=== PATIENT | female | born 1980 | race Caucasian/White ===

== ENCOUNTER → 2020-06-27 02:45 | Outpatient (CLI) | payer OTHER, SELFPAY ==
[2020-06-27 19:42] LABS: SARS-CoV-2 RNA PCR Negative
== END ==
PROVIDERS: PCP Physician Assistant; Visit Provider Internal Medicine Gastroenterology
DX: Z01.812 Encounter for preprocedural laboratory examination (principal); Z20.822 Contact with and (suspected) exposure to COVID-19
CPT/HCPCS: C9803; U0003; U0005

== ENCOUNTER 2020-06-30 02:11 | Day surgery (SDC) | payer OTHER, SELFPAY ==
[2020-06-24 11:45] VITALS: BMI 22.0
[2020-06-30] MEDS: LACTATED RINGERS 1,000 ML 150 ML IV CONT (12:34)
[2020-06-30 12:39] VITALS: BP 120/75; PULSE 83; RESP 14; TEMP 36.4; O2SAT 99
--- NOTE | 2020-06-30 12:53 | PM.HPGS ---
History of Present Illness History of Present Illness Consent: Risks, benefits, and alternatives have been discussed and questions answered. Patient agrees to proceed with procedure. Chief complaint: Neoplasm Screening Narrative: Lynette Schwartz is a 40 year old female had colonoscopy 10 years ago (normal) because mother had polyp in her 30's and grandparent had colon cancer. Review of Systems Constitutional: Constitutional: Denies headache(s) and Denies weakness Eyes: Eyes: Denies blurry vision ENT: Reports Normal hearing present, Denies headache(s) and Denies neck pain Cardiovascular: Cardiovascular: Denies chest pain and Denies dyspnea Respiratory: Respiratory: Denies dyspnea Gastrointestinal: Gastrointestinal: Reports no additional gastrointestinal complaints Genitourinary: Genitourinary: Denies dysuria Musculoskeletal: Musculoskeletal: Denies neck pain Integumentary/Breasts: Skin/Breast: Denies dry skin Neurologic: Reports Normal hearing present, Denies headache(s) and Denies weakness Psychiatric: Psychiatric: Denies anxiety Endocrine: Endocrine: Denies change in body appearance Hematologic/Lymphatic: Hematologic/Lymphatic: Denies easy bleeding Allergic/Immunologic: Allergic/Immunologic: Denies urticaria PMFSH Past Medical History Medical History IBS (irritable bowel syndrome) Surgical History Surgical History Gallbladder disorder Gallbladder removed Family History Family History Father Skin cancer Hypertension Mother Asthma Thyroid disorder Sibling Asthma Hypertension Thyroid disorder Grandparent Carcinoma of colon Grandparent Depression Heart disease Social History Social History Smoking status: Never smoker Alcohol intake: current Drinks per week: 1 Alcohol use details: wine Substance use: never Substance use type: does not use Living arrangements: with family Gender identity (if verbalized by the patient): Female Meds Home Medications and Allergies Home Medications Medication Instructions Recorded Confirmed Type sodium,potassium,mag sulfates 17.5 See Rx Instructions PO .COMPLEX 06/24/20 Rx gram-3.13 gram-1.6 gram oral soln #354 ml Allergies Allergy/AdvReac Type Severity Reaction Status Date / Time No Known Allergies Allergy Mild Verified 06/24/20 11:41 Vital Signs Vital Signs - 24 hr 06/30/20 12:39 Temperature 97.6 F Pulse Rate 83 Respiratory Rate 14 Blood Pressure 120/75 Pulse Oximetry 99 Exam Const: General: comfortable and no acute distress HENMT: General nose exam: Normal nares present Eyes: General: appearance normal, both eyes and all related structures Neck: Neck: no JVD Resp: Auscultation: clear to auscultation bilaterally Cardio: Rate: regular rate Rhythm: regular rhythm GI: Inspection: non-distended GI Palp: Yes Soft to palpation Skin: General skin exam: normal color Neuro: General: gait normal Speech: normal speech Extrem: General: normal to inspection Psych: Mental Status: mental status grossly normal Assessment and Plan Assessment and plan (1) Encounter for colonoscopy in patient with family history of colon polyps: Code(s): Z12.11 - Encounter for screening for malignant neoplasm of colon; Z83.71 - Family history of colonic polyps Status: Acute Assessment and Plan: proceed with colonoscopy
--- NOTE | 2020-06-30 13:04 | WPDANESEPPF ---
Anes - Initial Pre Proc Eval Procedure: Operation Date: 06/30/20 13:45 Proposed Procedures p Screening Colonoscopy - Cornelio Casey MD Date/Time: 06/30/20 13:04 Surgeon: Cornelio Casey MD Pre Op Diagnosis: Neoplasm Screening Patient Data Age: 40 Gender: F Height: 5 ft 5 in Weight: 59.1 kg Last Vital Signs Temp 97.6 F 06/30/20 12:39 Pulse 83 06/30/20 12:39 Resp 14 06/30/20 12:39 BP 120/75 06/30/20 12:39 Pulse Ox 99 06/30/20 12:39 Allergies Allergy/AdvReac Type Severity Reaction Status Date / Time No Known Allergies Allergy Mild Verified 06/24/20 11:41 Home Medications Medication Instructions Recorded Confirmed Type sodium,potassium,mag sulfates 17.5 See Rx Instructions PO .COMPLEX 06/24/20 Rx gram-3.13 gram-1.6 gram oral soln #354 ml Patient hx anesthesia problems: none Family hx anesthesia problems: none PMFSH Past Medical History Medical History IBS (irritable bowel syndrome) Surgical History Surgical History Gallbladder disorder Gallbladder removed Family History Family History Father Skin cancer Hypertension Mother Asthma Thyroid disorder Sibling Asthma Hypertension Thyroid disorder Grandparent Carcinoma of colon Grandparent Depression Heart disease Social History Social History Smoking status: Never smoker Alcohol intake: current Drinks per week: 1 Alcohol use details: wine Substance use: never Substance use type: does not use Living arrangements: with family Gender identity (if verbalized by the patient): Female Anes - Eval Final PreProcedure Day of Procedure 06/30/20 13:04 Patient weight: normal Heart: regular rate and rhythm Lungs: clear to auscultation Airway: Mallampati scale class 1 Neurological: alert and oriented Last oral intake: >/= 8 hours ASA classification: I Emergent: no Anesthetic plan: proceed Anesthesia type and monitoring: general GIVS and standard monitoring Informed Consent: The patient's anesthetic plan and its attendant risks and benefits were discussed with the patient/family/POA. Questions were solicited and answers provided to the satisfaction of the patient/family/POA.
[2020-06-30 13:25] VITALS: BP 95/57; PULSE 66; RESP 21; O2SAT 100
[2020-06-30 13:35] VITALS: BP 107/66; PULSE 83; RESP 26; O2SAT 100
[2020-06-30 13:41] VITALS: BP 112/73; PULSE 68; RESP 14; O2SAT 99
== END 2020-06-30 13:52 | disposition home or self-care (01) ==
PROVIDERS: PCP Physician Assistant; Visit Provider Internal Medicine Gastroenterology
PROC: 0DJD8ZZ Inspection of Lower Intestinal Tract, Via Natural or Artificial Opening Endoscopic (ICD-10-PCS; CPT 45378; principal; 2020-06-30 13:45)
DX: Z12.11 Encounter for screening for malignant neoplasm of colon (principal); Z83.71 Family history of colonic polyps; K58.9 Irritable bowel syndrome, unspecified
CPT/HCPCS: 45378; C9803; J2704; J7120; U0003; U0005

== ENCOUNTER → 2020-07-15 10:21 | Outpatient (CLI) | payer OTHER, SELFPAY ==
--- NOTE | ~2020-07-15 | MM_ITS ---
EXAMINATION: MM screening [facility] w [facility] HISTORY: Screening TECHNIQUE: Craniocaudal and mediolateral oblique 3-D tomosynthesis images were obtained and synthetic 2-D images were generated. CAD analysis was submitted and interpreted. COMPARISON: No prior mammogram is available for comparison at this institution. BREAST PARENCHYMAL COMPOSITION: The breasts are heterogenously dense, which may obscure small masses. FINDINGS: There is no evidence of suspicious mass, calcification, or architectural distortion to sugg est malignancy in either breast. There has been no suspicious interval change. IMPRESSION: 1. No mammographic evidence of malignancy. 2. Recommend routine screening mammography in one year. BI-RADS Category 1: Negative Reviewed, dictated and finalized at location A.
--- NOTE | ~2020-07-15 | US_ITS ---
EXAMINATION: US pelvic complete w TV EXAM DATE: 07/15/2020 11:42 INDICATION: Right lower quadrant pain with abd tenderness. TECHNIQUE: Pelvic transabdominal and transvaginal sonogram was performed. There are multiple graysca le and Doppler images available for interpretation. There is no prior study for comparison. FINDINGS: Uterus measures 9.3 x 4.1 x 6.4 cm, and is morphologically normal. Endometrial stripe mireille sures 4 mm, within normal limits. There is no free pelvic fluid. Right adnexa: The ovary measures 2.4 x 2.1 x 1.6 cm and is morphologically normal. Ovarian vascular f low confirmed. Left adnexa: The ovary measures 2.7 x 1.2 x 2.4 cm and is morphologically normal. Ovarian vascular fl ow confirmed. IMPRESSION: 1. Unremarkable pelvic ultrasound exam. Reviewed, dictated and finalized at location A.
== END ==
PROVIDERS: PCP Physician Assistant; Visit Provider Obstetrics & Gynecology
DX: Z12.31 Encounter for screening mammogram for malignant neoplasm of breast (principal); R10.31 Right lower quadrant pain
CPT/HCPCS: 76830; 76856; 77063; 77067

== ENCOUNTER 2022-02-24 08:04 | Emergency (ER) | payer OTHER, SELFPAY ==
--- NOTE | 2022-02-24 08:11 | ED.URI ---
HPI - URI/Sore Throat General Chief Complaint: Upper Respiratory Infection Stated Complaint: SORE THROAT/COUGH/CHEST TIGHTNESS Time Seen by Provider: 02/24/22 08:16 Source: patient and RN notes reviewed Mode of arrival: ambulatory Limitations: no limitations History of Present Illness HPI Narrative: 42-year-old female presents with concern for 5 history of cough, chest tightness, thick phlegm. She reports she has been using Sudafed without relief. She denies nasal congestion, rhinorrhea, fever, chills, sweats. Reports aches. MD elicited complaint: cough Related Data Allergies Allergy/AdvReac Type Severity Reaction Status Date / Time No Known Allergies Allergy Mild Verified 02/24/22 08:26 Review of Systems Review of Systems: CONSTITUTIONAL: Report malaise. Denies chills, sweats, or fever. EYES: Denies visual changes, redness, or discharge. ENT: Denies rhinorrhea, congestion, sinus pain, otalgia. Reports sore throat. CARDIOVASCULAR: Denies chest pain, palpitations, or edema. RESPIRATORY: Reports cough, chest congestion. Denies dyspnea. GASTROINTESTINAL: Denies abdominal pain, nausea, vomiting, diarrhea SKIN: Denies rash or itching. MUSCULOSKELETAL: Reports myalgia. NEUROLOGIC: Denies headache. All systems reviewed & are unremarkable except as noted in HPI and below PMFSH Past Medical History Medical History IBS (irritable bowel syndrome) Surgical History Surgical History Gallbladder disorder Gallbladder removed Family History Family History Father Skin cancer Hypertension Mother Asthma Thyroid disorder Sibling Asthma Hypertension Thyroid disorder Grandparent Carcinoma of colon Grandparent Depression Heart disease Social History Social History Smoking status: Never smoker Alcohol intake: current Drinks per week: 1 Alcohol use details: wine Substance use: never Substance use type: does not use Gender identity (if verbalized by the patient): Female Comments At time of signature, agree with nursing past medical, surgical, social and family history. There is no relevant family history pertinent to the presenting complaint Exam Narrative: GENERAL: Well-appearing, well-nourished, and in no acute distress. HEAD: Normocephalic EYES: PERRLA, conjunctivae clear ENT: Nares clear, clear discharge. Mucous membranes moist. TM pearly nicole with dull light reflex bilaterally; no tragal tenderness. Oropharynx not erythematous without lesions. Tonsils not enlarged and without exudate, no drooling, no hoarseness, no trismus, uvula midline. NECK: Supple. No lymphadenopathy CHEST: Clear to auscultation, breath sounds equal. No wheezing, rhonchi, rales, or stridor. No respiratory distress, speaks in full sentences. HEART: Regular rate and rhythm. No murmur heard. SKIN: Warm, dry, no rash. NEURO: Alert and oriented x3. PSYCH: Normal mood and affect Course Course Emergency Course: Patient is aware of diagnosis, understands and agrees to treatment plan. Anticipatory guidance given. Patient agrees to follow-up as directed and is aware of reasons to seek care at the emergency department. Portions of this record may have been created with voice recognition software Level of Care: Express Care Visit Vital Signs Vital signs: Reviewed. MDM - URI/Sore Throat MDM Narrative Medical decision making narrative: Differential diagnosis considered: Jimenez virus, strep pharyngitis, allergic rhinitis, upper respiratory tract infection, sinusitis, rhinosinusitis, nasopharyngitis. viral pharyngitis, otitis media, otitis externa, pneumonia, bronchitis, viral cough syndrome, viral syndrome, and influenza. Exam findings show no acute concerns or changes; patient is non-toxic appearing and
[2022-02-24 08:15] VITALS: BP 134/74; PULSE 95; RESP 16; TEMP 37.1; O2SAT 100
== END 2022-02-24 08:38 | disposition home or self-care (01) ==
PROVIDERS: Emergency Provider Nurse Practitioner; PCP Physician Assistant
DX: J40 Bronchitis, not specified as acute or chronic (principal)
CPT/HCPCS: 99213; G0463

== ENCOUNTER → 2022-10-20 11:13 | Outpatient (CLI) | payer OTHER, SELFPAY ==
--- NOTE | ~2022-10-20 | MM_ITS ---
EXAMINATION: MM screening [facility] BI w [facility] HISTORY: Screening mammogram TECHNIQUE: Craniocaudal and mediolateral oblique 3-D tomosynthesis images were obtained and synthetic 2-D images were generated. CAD analysis was submitted and interpreted. COMPARISON: 07/15/2020 bilateral screening mammogram BREAST PARENCHYMAL COMPOSITION: The breasts are heterogeneously dense, which may obscure small masses . FINDINGS: There is no evidence of suspicious mass, calcification, or architectural distortion to sugg est malignancy in either breast. There has been no suspicious interval change. IMPRESSION: 1. No mammographic evidence of malignancy. 2. Recommend routine screening mammography in one year. BI-RADS Category 1: Negative Reviewed, dictated and finalized at location A.
== END ==
PROVIDERS: PCP Physician Assistant; Visit Provider Physician Assistant
DX: Z12.31 Encounter for screening mammogram for malignant neoplasm of breast (principal)
CPT/HCPCS: 77063; 77067

== ENCOUNTER 2023-03-09 08:19 | Emergency (ER) | payer OTHER, SELFPAY ==
--- NOTE | 2023-03-09 08:36 | ED.URI ---
HPI - URI/Sore Throat General Chief Complaint: Upper Respiratory Infection Stated Complaint: throat History of Present Illness HPI Narrative: 43-year-old female presented for complaint of sore throat, nasal congestion, and cough over the past few days. States that her pain is becoming severe, rating 9/10. Taking ibuprofen for symptoms. Endorses family members with similar symptoms. Denies shortness of breath, wheezing, nausea, vomiting, fevers or chills. Related Data Allergies Allergy/AdvReac Type Severity Reaction Status Date / Time No Known Allergies Allergy Mild Verified 07/06/22 10:09 Review of Systems Review of Systems: CONSTITUTIONAL: Denies body aches, fever, chills, or sweats. EYES: Denies visual changes, redness, or discharge. ENT: Reports rhinorrhea, congestion, sore throat denies otalgia. CARDIOVASCULAR: Denies chest pain, palpitations, or edema. RESPIRATORY: Denies dyspnea. GASTROINTESTINAL: Denies abdominal pain, nausea, vomiting, or diarrhea. SKIN: Denies rash, itching, or wounds. MUSCULOSKELETAL: Denies back pain, joint pain, or myalgia. NEUROLOGIC: Denies headache PMFSH Past Medical History Medical History IBS (irritable bowel syndrome) Surgical History Surgical History Gallbladder disorder Gallbladder removed Family History Family History Father Skin cancer Hypertension Mother Asthma Thyroid disorder Sibling Asthma Hypertension Thyroid disorder Grandparent Carcinoma of colon Grandparent Depression Heart disease Social History Social History Smoking status: Never smoker Alcohol intake: current Drinks per week: 1 Alcohol use details: wine Substance use: never Substance use type: does not use Lack of Transportation: No Lack of Food: Never True Current Housing: I Have Housing Concerned About Future Housing: No Difficulty Paying Gas/Electric Bills: No Difficulty Paying for Meds: No Currently Unemployed: No Education: Bachelor's Degree Difficulty w/ Childcare or Family Care: No Living arrangements: with family Gender identity (if verbalized by the patient): Female Exam Narrative: GENERAL: well-appearing, no acute distress. EYES: conjunctivae clear ENT: Mucous membranes moist. TM pearly nicole with normal light reflex bilaterally; no tragal tenderness. Oropharynx mildly erythematous Tonsils not enlarged and without exudate. No drooling, no hoarseness, no trismus, uvula midline. No tripod positioning, hot potato voice, or soft palate swelling. NECK: Supple. No lymphadenopathy CHEST: Clear to auscultation, breath sounds equal. No respiratory distress, speaks in full sentences. HEART: Regular rate and rhythm. No murmur heard. SKIN: Warm, dry, no rash. NEURO: Alert and oriented x3. Course Course Emergency Course: Patient is aware of diagnosis, understands and agrees to treatment plan. Anticipatory guidance given. Patient agrees to follow-up as directed and is aware of reasons to seek care at the emergency department. Portions of this record may have been created with voice recognition software Level of Care: Express Care Visit Vital Signs Vital signs: Vital Signs Temperature 98.7 F 03/09/23 08:40 Pulse Rate 95 03/09/23 08:40 Respiratory Rate 16 03/09/23 08:40 Blood Pressure 117/87 03/09/23 08:40 Pulse Oximetry 100 03/09/23 08:40 Oxygen Delivery Room Air 03/09/23 08:40 Temperature 98.7 F 03/09/23 08:40 Pulse Rate 95 03/09/23 08:40 Respiratory Rate 16 03/09/23 08:40 Blood Pressure 117/87 03/09/23 08:40 Pulse Oximetry 100 03/09/23 08:40 Oxygen Delivery Room Air 03/09/23 08:40 MDM - URI/Sore Throat MDM Narrative Medical decision making narrative:
[2023-03-09 08:40] VITALS: BP 117/87; PULSE 95; RESP 16; TEMP 37.1; O2SAT 100
== END 2023-03-09 08:53 | disposition home or self-care (01) ==
PROVIDERS: Emergency Provider Nurse Practitioner Family
DX: J06.9 Acute upper respiratory infection, unspecified (principal)
CPT/HCPCS: 87081; 87880; 99213; G0463

== ENCOUNTER 2023-08-03 13:18 | Outpatient (CLI) | payer OTHER, SELFPAY ==
--- NOTE | ~2023-08-03 | US_ITS ---
EXAMINATION: US pelvic complete w TV DATE: 08/03/2023 13:47 INDICATION: Pelvic/perineal pain TECHNIQUE: Multiple transabdominal and endovaginal sonographic images of the pelvis were obtained. COMPARISON: None. FINDINGS: The uterus measures 10.3 x 4.8 x 5.8 cm. The endometrial complex measures 11 mm in thickness. The ri ght ovary measures 3.2 x 2.0 x 2.7 cm. And contains a 1.8 cm hypoechoic lesion statistically most lik davian to represent a complex hemorrhagic or corpus luteum cyst. The left ovary measures 2.0 x 1.2 x 1.6 cm. After flow identified at both ovaries on color Doppler. There is no free fluid in the pelvis. IMPRESSION: 1. 1.8 cm hypoechoic lesion at the right ovary statistically most likely to represent a complex hemor rhagic corpus luteum cyst. Consider follow-up ultrasound in 6-12 weeks. Reviewed, dictated and finalized at location A. IMPRESSION: 1. 1.8 cm hypoechoic lesion at the right ovary statistically most likely to rep resent a complex hemorrhagic corpus luteum cyst. Consider follow-up ultrasound in 6-12 weeks.
== END 2023-08-03 13:19 ==
LOC: MICIMG 13:20
PROVIDERS: PCP Physician Assistant
DX: R10.2 Pelvic and perineal pain (principal)
CPT/HCPCS: 76830; 76856

== ENCOUNTER 2024-09-20 13:45 | Outpatient (CLI) | payer BC, SELFPAY ==
--- NOTE | ~2024-09-20 | US_ITS ---
EXAMINATION: US pelvic complete w TV INDICATION: Right ovarian cyst. Comparison:08/03/2023 and 07/15/2020 TECHNIQUE: Multiple transabdominal and endovaginal sonographic images of the pelvis performed. FINDINGS: The uterus measures 10.7 x 5.5 x 6.4 cm. There is a small endometrial cyst measuring 3 mm. The endometrial complex measures 1.7 cm. The right ovary measures 2.8 x 2.7 x 2.9 cm and the left ovary measures 4.5 x 3 x 3.3 cm. There is a septated 3.9 cm left ovarian cyst. There is a 2.3 cm right ovarian cyst. Normal doppler signal in bot h ovaries. There is no free fluid in the pelvis. There are no abnormal masses seen on either side. IMPRESSION: 1. Thickened endometrial complex measuring 1.7 cm. 2: Bilateral ovarian cysts, largest in the left ovary being septated measuring 3.9 cm. Reviewed, dictated and finalized at location A.
== END 2024-09-20 13:46 | disposition home or self-care (01) ==
PROVIDERS: PCP Internal Medicine; Visit Provider Nurse Practitioner Family
DX: R93.89 Abnormal findings on diagnostic imaging of other specified body structures (principal); N83.202 Unspecified ovarian cyst, left side; N83.201 Unspecified ovarian cyst, right side
CPT/HCPCS: 76830; 76856

== ENCOUNTER 2024-11-12 08:23 | Outpatient (CLI) | payer BC, SELFPAY ==
--- NOTE | ~2024-11-12 | US_ITS ---
Pelvic ultrasound. Clinical History: Follow-up exam COMPARISON: 09/20/2024 Technique: Realtime transabdominal and transvaginal scanning of the pelvis was performed. Color flow Doppler and Doppler spectral analysis were performed. Findings: The uterus is anteverted. The endometrial stripe has a thickness of 8 mm. No focal mass is identified. The right ovary measures 2.1 x 0.9 x 2.1 cm. No significant right ovarian or adnexal mass is seen. The left ovary measures 4.4 x 2.5 x 3.6 cm. Simple left ovarian cyst measures 3.4 cm in diameter Ther e is no evidence of free fluid in the cul de sac. Impression: 3.4 cm simple left ovarian cyst, minimally decreased from prior exam. Reviewed, dictated and finalized at [facility]. Impression: 3.4 cm simple left ovarian cyst, minimally decreased from prior exam.
== END 2024-11-12 08:24 | disposition home or self-care (01) ==
PROVIDERS: PCP Internal Medicine; Visit Provider Nurse Practitioner Family
DX: N83.292 Other ovarian cyst, left side (principal); N83.201 Unspecified ovarian cyst, right side
CPT/HCPCS: 76830; 76856

== ENCOUNTER 2025-01-01 07:46 | Outpatient (CLI) | payer BC, SELFPAY ==
--- NOTE | ~2025-01-01 | MM_ITS ---
EXAMINATION: MM screening [facility] BI w kriss HISTORY: Screening TECHNIQUE: Craniocaudal and mediolateral oblique 3-D tomosynthesis images were obtained and synthetic 2-D images were generated. CAD analysis was submitted and interpreted. COMPARISON: Mammograms from 10/20/2022 and 07/15/2020 BREAST PARENCHYMAL COMPOSITION: The breasts are heterogeneously dense, which may obscure small masses. FINDINGS: There is no evidence of suspicious mass, calcification, or architectural distortion in either breast to suggest malignancy. There has been no significant interval change. IMPRESSION: 1. No mammographic evidence of malignancy. Recommend routine screening mammography in one year. BI-RADS Category 1: Negative Reviewed, dictated and finalized at location Q. IMPRESSION: 1. No mammographic evidence of malignancy. Recommend routine screening mammogra phy in one year. BI-RADS Category 1: Negative
== END 2025-01-01 07:47 | disposition home or self-care (01) ==
LOC: MICIMG 07:47
PROVIDERS: PCP Internal Medicine; Visit Provider Nurse Practitioner Family
DX: Z12.31 Encounter for screening mammogram for malignant neoplasm of breast (principal)
CPT/HCPCS: 77063; 77067